=== PATIENT | female | born 1975 | race Hispanic/Latino ===

== ENCOUNTER 2017-12-08 08:23 | Outpatient (CLI) | payer OTHER | END 2017-12-08 08:24 | disposition home or self-care (01) | LOC: BICULT 08:23 | PROVIDERS: ATTEND Family Medicine | DX: B19.20 Unspecified viral hepatitis C without hepatic coma (principal); R10.2 Pelvic and perineal pain; R93.8 Abnormal findings on diagnostic imaging of other specified body structures | CPT/HCPCS: 76700; 76856 ==

== ENCOUNTER 2018-02-14 10:08 | Outpatient (CLI) | payer OTHER ==
[2018-02-14] MEDS ORDERED: Gadobenate Dimeglumine 529 MG/1 ML (20ML VIAL) ONE (13:15)
== END 2018-02-14 10:09 | disposition home or self-care (01) ==
LOC: BICMRI 10:08
PROVIDERS: ATTEND Family Medicine
DX: N85.8 Other specified noninflammatory disorders of uterus (principal)
CPT/HCPCS: 72197; A9579

== ENCOUNTER 2018-06-26 05:41 | Inpatient (IN) | payer OTHER ==
[2018-06-26] MEDS ORDERED: Acetaminophen 650 MG/20.3 ML UDCUP ONE (06:15)
[2018-06-26] MEDS ORDERED: Gabapentin 300 MG CAP ONE (06:17)
[2018-06-26] MEDS ORDERED: Famotidine/PF 20 mg/2ml Vial ONE (06:17)
[2018-06-26] MEDS ORDERED: CeleCOXIB 100 MG CAP ONE (06:18)
[2018-06-26] MEDS ORDERED: CEFAZOLIN 2 GM/50 ML BAG ONE (06:18)
[2018-06-26 06:30] LABS: #Eosinphils 0.2 thou/uL (0.0-0.7); #Lymphocytes 2.1 thou/uL (1.20-3.40); #Monocytes 0.5 thou/uL (0.11-0.59); #Neutrophils 3.7 thou/uL (1.40-6.50); %Basophils 0.5 % (0.0-1.0); %Lymphocytes 31.7 % (21.0-51.0); %Monocytes 8.1 % (0.0-10.0); %Neutrophils 56.6 % (42.0-75.0); Hemoglobin 10.9 g/dL (12.0-16.0); Mean Corpuscular HGB CONC 32.1 g/dL (32.0-36.0); Mean Corpuscular Hemoglobin 25.4 pg (27.0-31.0); Mean Corpuscular Volume 79.2 fL (78.0-98.0); Mean Platelet Volume 7.1 fL (7.4-10.4); Platelet Count 373 thou/uL (130-400); Red Blood Cell (RBC) Count 4.29 mill/uL (4.20-5.40); White Blood Cell (WBC) Count 6.5 thou/uL (4.8-10.8)
[2018-06-26] MEDS ORDERED: Bupivacaine HCl 0.5%/Epinephrine 1:200,000/PF 30 ml Vial ONE (06:53)
[2018-06-26] MEDS ORDERED: Fentanyl 100 MCG/2 ML VIAL ONE ×3 (06:55→11:52)
[2018-06-26 06:56] LABS: ALT (SGPT) 37 U/L (8-55); AST (SGOT) 43 U/L (5-34); Albumin 4.1 g/dL (3.5-5.0); Alkaline Phosphatase 87 U/L (40-150); Anion Gap 12 mmol/L (10-20); BUN (Urea Nitrogen) 12 mg/dL (7.0-18.7); Bilirubin, Total 0.5 mg/dL (0.2-1.2); Calc. Creatinine Clearance 0 mL/min (70-130); Calcium 8.9 mg/dL (7.8-10.44); Carbon Dioxide 25 mmol/L (22-29); Chloride 104 mmol/L (98-107); Estimated GFR-MDRD 74; Globulin 3.7 g/dL (2.4-3.5); Glucose 87 mg/dL (70-105); Potassium 3.8 mmol/L (3.5-5.1); Protein, Total 7.8 g/dL (6.0-8.3); Sodium 137 mmol/L (136-145)
[2018-06-26 07:27] LABS: Pregnancy Test - Urine (BHCG) Negative (Negative)
[2018-06-26 07:28] LABS: Pregu Control Background? CLEAR/WHITE (CLR/WHITE); Pregu Control Bar Appear? YES (CONTROL BAR); Specific Gravity 1.019 (1.002-1.036)
[2018-06-26] MEDS ORDERED: Midazolam HCl 2 mg/2 ml Vial ONE (07:32)
[2018-06-26] MEDS ORDERED: Meperidine HCl/PF 25 MG/ML VIAL ONE (10:52)
[2018-06-26] MEDS ORDERED: Promethazine HCl 25 MG/ML VIAL IM PRN (11:01)
[2018-06-26] MEDS ORDERED: Acetaminophen 325 MG TAB PO PRN (11:01)
[2018-06-26] MEDS ORDERED: Ondansetron PF 4 MG/2 ML Vial IVP PRN (11:01)
[2018-06-26] MEDS ORDERED: Simethicone Chewable 80 MG TAB PO PRN (11:01)
[2018-06-26] MEDS ORDERED: Bisacodyl 10 MG SUPP PR PRN (11:01)
[2018-06-26] MEDS ORDERED: HYDROcodone/Acetaminophen 5/325 mg Tablet PO PRN (11:01)
[2018-06-26] MEDS ORDERED: diphenhydrAMINE 25 MG CAP PO PRN (11:01)
[2018-06-26] MEDS: Lactated Ringer's 1,000 ML IV SCH ×2 (13:45→16:36)
[2018-06-26] MEDS: Morphine 2 MG/ML SYRINGE SLOW IVP PRN ×2 (13:46→19:42)
--- NOTE | 2018-06-26 14:10 | OP ---
DATE OF PROCEDURE: 06/26/2018 PREOPERATIVE DIAGNOSES: 1. Abnormal uterine bleeding. 2. Suspected adenomyosis. 3. Dysmenorrhea. 4. Anemia. POSTOPERATIVE DIAGNOSES: 1. Abnormal uterine bleeding. 2. Suspected adenomyosis. 3. Dysmenorrhea. 4. Anemia. PROCEDURES: 1. Robotic-assisted total laparoscopic hysterectomy with a bilateral salpingectomy. 2. Lysis of adhesions. SURGEON: Janna Price D.O. GREEN BUILDING ENERGY ENGINEER: Mary Grace Harp M.D. COMPLICATIONS: None. ESTIMATED BLOOD LOSS: 50 mL IV FLUIDS: 1200 mL URINE OUTPUT: 200 mL FINDINGS: Normal-appearing external genitalia, normal vaginal and cervical epithelium, approximately 9 cm uterus, severe omental adhesions to the anterior abdominal wall, severe adhesions from the bladder to the lower uterine segment and uterine cervix from her prior deliveries. INDICATIONS FOR THE PROCEDURE: Ms. Celia Brewer is a 42-year-old G5, P4 , who presented with longstanding history of abnormal uterine bleeding, which resulted in anemia. The patient has been on medical therapy, which did not resolve her symptoms. She had imaging, which was suggestive of possible adenomyosis. The patient was counseled on options and desired definitive surgical treatment for her abnormal uterine bleeding and dysmenorrhea. PROCEDURE IN DETAIL: The patient was brought to the operating room where she was placed under general anesthesia. The patient was placed in the dorsal lithotomy position and her arms were tucked appropriately for robotic surgery. She was given 2 grams of Ancef for surgical prophylaxis. She was prepped and draped in a sterile fashion and an official timeout was performed. A single- sided speculum was placed in the vagina. The anterior aspect of the cervix was grasped using single tooth tenaculum and the cervix was sequentially dilated using Alvarez dilators. The uterus was sounded to 9 cm. A GENE manipulator was appropriately inserted and secured to the ectocervix. A King catheter was placed. Gloves were changed and attention was turned to the abdominal portion. A supraumbilical incision was made using the scalpel and the Veress needle was inserted into the peritoneal cavity. The peritoneal cavity was insufflated , noting a normal pressure and a 12-mm trocar was placed at this site. Upon entrance, it was noted thick omental adhesions to the anterior abdominal wall directly in front of this trocar site. The other trocars were still able to be placed as their sites could be visualized well. There was an 8-mm robotic port placed in both the right and left aspect of the abdomen and then an 11-mm cardiovascular physician assistant port placed in the right aspect. All trocars were placed under direct visualization with local anesthesia. The patient was placed in Trendelenburg position. A 5-mm scope was then inserted through the side ports to allow for better visualization of the adhesions near the midline. Laparoscopic scissors with monopolar were used to dissect these adhesions down noting only omental adhesions and no area of bowel attached to the anterior abdominal wall. This was performed until the visualization of the midline port was improved so that the robotic portion could be completed. At this point, the robot was appropriately secured to the patient and the instruments were inserted. Again, the dissection of the omentum along the anterior abdominal wall was performed. This was extensive adhesions until the uterus and pelvis were able to be fully evaluated. There were thick omental adhesions to the left pelvic sidewall, which also required dissection to allow for visualization for the normal left pelvic anatomy. The adnexa were evaluated. There was a small follicular cyst on the left ovary; however, the right ovary appeared normal. A left salpingectomy was performed removing the fallopian tube. There was evidence of prior tubal ligation as well. The adhesions in the left sidewall were taken down. The left uteroovarian ligament was coagulated multiple times and transected allowing some freedom on the left sidewall. The left ureter was identified transperitoneally and the course was evaluated, noting to be clear away from the dissection plane. The adhesions were taken down additionally on the left side, which allowed identification of the round ligament and this was coagulated multiple times and transected allowing entrance into the broad ligament. The bladder was firmly adhered on the left side up to the lower uterine segment of the uterus and along the left aspect of the uterus as well. Therefore, careful dissection was taken. Attention was then turned over to the right aspect. The right distal salpingectomy was performed removing the fallopian tube. The right round ligament was coagulated multiple times and transected. The right uteroovarian ligament was coagulated multiple times and transected. The broad ligament was undermined posteriorly down towards the level of the uterosacral ligament. The right anterior leaf of the broad ligament was able to be slightly undermined and transected on the right side to beginning the bladder dissection on the right aspect. There were severe adhesions throughout this dissection, which required and burn and push method to dissect the planes. The bladder was backfilled multiple times to allow for delineation of the bladder versus scar tissue and the scar tissue was then taken down in multiple layers on the right aspect and again on the left until the correct plane was achieved where the bladder was completely inferiorly reflected away from the uterus. This dissection took time as it was difficult from her 4 prior deliveries. The left uterine vessels were then skeletonized and then coagulated multiple times. Attention was turned over to the right side where the right uterine vessels were skeletonized and coagulated as well. The uterine vessels were then transected bilaterally creating hemostasis. There was an area on the right aspect with additional bleeding from the uterine vessels, which quickly achieved hemostasis with bipolar cautery. The colpotomy was performed in circumferential fashion, completely removing the cervix from the vaginal epithelium. The uterus, cervix and GENE manipulator were then removed through the vagina and the pelvis was irrigated and cleared of all clot and debris. There are some small areas along the cuff that required bipolar cautery. The vaginal cuff was then closed in a running fashion using 2-0 Stratafix suture. Pelvis was again cleared of all clot and debris. Tisseel was placed along the vaginal cuff, the adnexal sites and the uterine artery pedicles achieving hemostasis. The bladder was again backfilled due to the extensive dissection. There were no areas of injury to the bladder that could be noted. The bladder was then drained and the King catheter remained in place. The instruments were then removed. The robot was undocked from the patient. The patient was taken out of Trendelenburg position and the abdomen was deflated and the trocars were removed. The 12-mm trocar site fascia was closed using 0 Vicryl. The skin was closed using 4-0 Monocryl and Dermabond. The patient tolerated the procedure well. There were no complications. All counts were correct x2. She was extubated and transferred to PACU in stable condition. SHANNON
[2018-06-26] MEDS: Ibuprofen 800 MG TAB PO SCH ×2 (14:11→21:44)
[2018-06-26] MEDS ORDERED: PHENYLEPHRINE-NS 100 MCG/ML 10 ML SYRINGE ONE (15:23)
[2018-06-26] MEDS ORDERED: PROPOFOL 200 MG/20 ML VIAL ONE (15:23)
[2018-06-26] MEDS ORDERED: Dexamethasone 20 MG/5 ML VIAL ONE (15:23)
[2018-06-26] MEDS ORDERED: Ondansetron PF 4 MG/2 ML Vial ONE (15:23)
[2018-06-26] MEDS ORDERED: Glycopyrrolate 0.2 MG/ML 5 ML SYRINGE ONE (15:23)
[2018-06-26] MEDS ORDERED: Lidocaine 1% PF 5 ML VIAL ONE (15:23)
--- NOTE | 2018-06-26 16:50 | EKG ---
Test Reason : PREOP Blood Pressure : / mmHG Vent. Rate : 061 BPM Atrial Rate : 061 BPM P-R Int : 154 ms QRS Dur : 102 ms QT Int : 428 ms P-R-T Axes : 030 019 031 degrees QTc Int : 430 ms Normal sinus rhythm Normal ECG No previous ECGs available Confirmed by DR. Zaki HAMMER ([id number]) on 06/26/2018 4:49:51 PM Referred By: SATHYA Confirmed By:DR. Zaki HAMMER
[2018-06-26] MEDS: HYDROcodone/Acetaminophen 5/325 mg Tablet PO PRN ×2 (17:21→21:44)
[2018-06-26] MEDS ORDERED: Propranolol 10 MG TAB PO SCH (21:00)
[2018-06-27] MEDS: Morphine 2 MG/ML SYRINGE SLOW IVP PRN (00:31)
[2018-06-27] MEDS: Zolpidem Tartrate 5 MG TAB PO PRN ×2 (00:38→01:28)
[2018-06-27] MEDS: Lactated Ringer's 1,000 ML IV SCH (00:39)
[2018-06-27] MEDS: HYDROcodone/Acetaminophen 5/325 mg Tablet PO PRN ×2 (04:03→09:47)
[2018-06-27] MEDS: Ibuprofen 800 MG TAB PO SCH (05:39)
[2018-06-27 05:52] LABS: #Eosinphils 0.1 thou/uL (0.0-0.7); #Lymphocytes 2.9 thou/uL (1.20-3.40); #Monocytes 0.9 thou/uL (0.11-0.59); #Neutrophils 8.8 thou/uL (1.40-6.50); %Basophils 0.3 % (0.0-1.0); %Eosinophils 0.7 % (0.0-10.0); %Lymphocytes 22.9 % (21.0-51.0); %Monocytes 6.7 % (0.0-10.0); %Neutrophils 69.4 % (42.0-75.0); Hemoglobin 9.4 g/dL (12.0-16.0); Mean Corpuscular HGB CONC 31.1 g/dL (32.0-36.0); Mean Corpuscular Volume 80.3 fL (78.0-98.0); Mean Platelet Volume 7.5 fL (7.4-10.4); Platelet Count 358 thou/uL (130-400); Red Blood Cell (RBC) Count 3.75 mill/uL (4.20-5.40); White Blood Cell (WBC) Count 12.7 thou/uL (4.8-10.8)
[2018-06-27 06:08] LABS: Anion Gap 11 mmol/L (10-20); BUN (Urea Nitrogen) 9 mg/dL (7.0-18.7); Calc. Creatinine Clearance 0 mL/min (70-130); Calcium 8.4 mg/dL (7.8-10.44); Carbon Dioxide 24 mmol/L (22-29); Chloride 103 mmol/L (98-107); Estimated GFR-MDRD 85; Glucose 98 mg/dL (70-105); Potassium 4.1 mmol/L (3.5-5.1); Sodium 134 mmol/L (136-145)
[2018-06-27 08:56] VITALS: BP 112/60; TEMP 97.8
[2018-06-27] MEDS ORDERED: Lisinopril 20 MG TAB PO SCH (09:00)
--- NOTE | 2018-06-27 23:55 | PRG ---
DATE OF SERVICE: 06/27/2018 HISTORY OF PRESENT ILLNESS: Postoperative day #1, status post robot-assisted total laparoscopic hysterectomy with bilateral salpingectomy and lysis of adhesions. SUBJECTIVE: The patient reports moderate pain improved with oral medications and she did receive some IV medication overnight. She was passing flatus, tolerating oral intake, has no vaginal bleeding and is voiding without difficulty. OBJECTIVE: VITAL SIGNS: Stable. Mild tachycardia when the patient has pain. CARDIOVASCULAR: Regular rate and rhythm this morning. RESPIRATORY: Unlabored breathing. ABDOMEN: Soft, mild distention. Incision is clean, dry, and intact with Dermabond and suture. Mild tenderness to palpation as expected postoperatively. EXTREMITIES: Negative Homans', negative cords. ASSESSMENT: 1. Postoperative day #1, status post robot-assisted total laparoscopic hysterectomy with bilateral salpingectomy and lysis of adhesions. 2. Chronic anemia. PLAN: The patient is meeting criteria for discharge, back to custodial, add pain medication p.r.n. and continue iron supplementation with followup as scheduled. SHANNON
--- NOTE | 2018-06-28 05:53 | DIS ---
DATE OF ADMISSION: 06/26/2018 DATE OF DISCHARGE: 06/27/2018 ADMISSION DIAGNOSIS: Postoperative pain control, status post robotic-assisted total laparoscopic hys terectomy with bilateral salpingectomy. DISCHARGE DIAGNOSIS: Postoperative pain control, status post robotic-assisted total laparoscopic hys terectomy with bilateral salpingectomy. ADMISSION AND DISCHARGE PHYSICIAN: Janna Price DO BRIEF HOSPITAL COURSE: Ms. Celia Brewer is a 42-year-old, , who underwent a robotic-ass isted total laparoscopic hysterectomy with bilateral salpingectomy and extensive lysis of adhesions f or history of abnormal uterine bleeding with suspected adenomyosis. The patient's intraoperative and postoperative course has been benign. She is meeting all requirements for discharge. She was voidi ng, ambulating, and tolerating oral intake, passing flatus, her pain is controlled with oral medicati ons. MEDICATIONS: 1. [place] 5/325 one tablet every 6 hours p.r.n. pain. 2. Motrin 800 mg one tablet every 8 hours p.r.n. pain. DISCHARGE LOCATION: To [facility]. CODE: FULL. ACTIVITY RESTRICTIONS: No heavy lifting, pushing or pulling, and pelvic rest x6 weeks. DIET: General. FOLLOWUP: 2 weeks.
== END 2018-06-27 10:16 | DRG 743 ==
LOC: SURG A 05:41 → 3SE 12:32
PROVIDERS: ADMIT Obstetrics & Gynecology; ATTEND Obstetrics & Gynecology
PROC: 0UT94ZZ Resection of Uterus, Percutaneous Endoscopic Approach (ICD-10-PCS; principal; 2018-06-26)
PROC: 0UTC4ZZ Resection of Cervix, Percutaneous Endoscopic Approach (ICD-10-PCS; 2018-06-26)
PROC: 0UT74ZZ Resection of Bilateral Fallopian Tubes, Percutaneous Endoscopic Approach (ICD-10-PCS; 2018-06-26)
PROC: 0UN94ZZ Release Uterus, Percutaneous Endoscopic Approach (ICD-10-PCS; 2018-06-26)
PROC: 8E0W4CZ Robotic Assisted Procedure of Trunk Region, Percutaneous Endoscopic Approach (ICD-10-PCS; 2018-06-26)
DX: N80.0 Endometriosis of uterus (principal); N93.8 Other specified abnormal uterine and vaginal bleeding; R10.2 Pelvic and perineal pain; D64.9 Anemia, unspecified; N73.6 Female pelvic peritoneal adhesions (postinfective)
CPT/HCPCS: 36415; 80048; 80053; 81025; 85025; 86850; 86900; 86901; 88307; 93005; 93010; J0131; J0670; J1100; J2001; J2175; J2250; J2270; J2405; J2704; J3010; S0028